=== PATIENT | female | born 1940 | race Caucasian/White ===

== ENCOUNTER → 2021-04-30 | Outpatient (CLI) | payer MEDICARE, OTHER ==
--- NOTE | 2021-04-30 12:12 | Diagnostic Imaging Report ---
INDICATION: Injury, medial left knee pain 4 views of the left knee shows no fracture, dislocation or other acute bony abnormality. There are degenerative changes present with narrowing most pronounced in the medial compartment. There is a small effusion. IMPRESSION: There are degenerative changes present with no acute bony abnormality seen. Dictated by: Dictated on workstation # [id number]
== END ==
LOC: ORTHO 10:41
PROVIDERS: ATTEND Orthopaedic Surgery
DX: M17.12 Unilateral primary osteoarthritis, left knee (principal)
CPT/HCPCS: 73562; G0463; 99202

== ENCOUNTER → 2021-06-02 | Outpatient (CLI) | payer MEDICARE, OTHER | LOC: ORTHO 10:20 | PROVIDERS: ATTEND Orthopaedic Surgery | DX: S80.02XA Contusion of left knee, initial encounter (principal); M17.12 Unilateral primary osteoarthritis, left knee; X58.XXXA Exposure to other specified factors, initial encounter | CPT/HCPCS: 99213 ==